=== PATIENT | female | born 1990 | race Two or more races ===

== ENCOUNTER 2018-02-06 17:49 | Emergency (ER) | payer MEDICAID ==
[~2018-02-06] VITALS: Ht 154.9 cm; Wt 56.0 kg
[2018-02-06] MEDS ORDERED: TETANUS, DIPHTHERIA, PERTUSSIS VAC/PF 0.5ML (>7YR OLD) IM ONE (19:15)
[2018-02-06 19:52] VITALS: BP 107/66
== END 2018-02-06 19:53 | disposition home or self-care (01) ==
LOC: ER 17:49
DX: T62.91XA Toxic effect of unspecified noxious substance eaten as food, accidental (unintentional), initial encounter (principal); Y92.89 Other specified places as the place of occurrence of the external cause; Z88.2 Allergy status to sulfonamides
CPT/HCPCS: 90471; 90715; 93005; 99283

== ENCOUNTER 2018-02-17 10:02 | Emergency (ER) | payer MEDICAID ==
[~2018-02-17] VITALS: Ht 160 cm; Wt 56.0 kg
[2018-02-17] MEDS ORDERED: TETRACAINE 0.5% OPHTH DROPS 4ML RIGHTEYE ONE (10:45)
[2018-02-17] MEDS ORDERED: FLUORESCEIN SODIUM 1MG/STRIP RIGHTEYE ONE (10:45)
[2018-02-17 11:40] VITALS: BP 111/54
== END 2018-02-17 11:58 | disposition home or self-care (01) ==
LOC: ER 11:48
DX: H00.031 Abscess of right upper eyelid (principal); Z88.8 Allergy status to other drugs, medicaments and biological substances
CPT/HCPCS: 99283

== ENCOUNTER 2018-07-14 16:59 | Emergency (ER) | payer MEDICAID ==
[~2018-07-14] VITALS: Ht 154.9 cm; Wt 57.0 kg
[2018-07-14] MEDS ORDERED: ONDANSETRON HCL 4MG/2ML INJ IV STA (20:47)
[2018-07-14] MEDS ORDERED: IBUPROFEN 600MG TABLET PO STA (20:47)
[2018-07-14] MEDS ORDERED: SODIUM CHLORIDE 0.9% 1,000 ML IV ONE (20:47)
[2018-07-14 21:26] LABS: CLARITY URINE CLEAR (CLEAR); COLOR URINE YELLOW (YELLOW); KETONES URINE NEGATIVE (NEGATIVE); LEUKOCYTE ESTERASE URINE NEGATIVE (NEGATIVE); NITRITE URINE NEGATIVE (NEGATIVE); OCCULT BLOOD URINE NEGATIVE (NEGATIVE); PH URINE >=9.0 (4.5-8.0); PROTEIN URINE NEGATIVE (NEGATIVE); SPECIFIC GRAVITY URINE 1.016 (1.005-1.030); UROBILINOGEN URINE 0.2 E.U./dL (0.2-1.0)
[2018-07-15 00:01] LABS: CHLORIDE 107 mEq/L (98-107)
[2018-07-15 00:03] LABS: BASOPHILS % 0.2 % (0.0-2.0); EOSINOPHILS % 0.1 % (0.0-5.0); HEMATOCRIT. 35.4 % (36.0-48.0); HEMOGLOBIN. 11.9 g/dL (12.0-16.0); LYMPHOCYTES % 8.5 % (20.0-50.0); MEAN CORPUSCULAR HEMOGLOBIN 30.5 pg (28.0-32.0); MEAN CORPUSCULAR VOLUME 91.2 fL (81.0-99.0); MEAN PLATELET VOLUME 9.5 fl (7.4-10.4); MONOCYTES % 6.8 % (2.0-8.0); NEUTROPHILS % 84.4 % (40.0-76.0); PLATELET 210 x1000/uL (130-400); RED BLOOD CELL COUNT 3.89 mill/uL (4.2-5.4); RED CELL DISTRIBUTION WIDTH 13.5 % (11.6-14.6)
[2018-07-15 00:57] VITALS: BP 105/59
== END 2018-07-15 01:00 | disposition home or self-care (01) ==
LOC: ER 16:59
DX: B34.9 Viral infection, unspecified (principal); Z88.8 Allergy status to other drugs, medicaments and biological substances
CPT/HCPCS: 36415; 80053; 81003; 81025; 85025; 96374; 99283; J2405; J7030